=== PATIENT | male | born 1980 | race African-American/Black ===

== ENCOUNTER 2020-11-18 21:57 | Emergency (ER) | payer SELFPAY | END 2020-11-18 22:31 | disposition left against medical advice (07) | LOC: ER 22:30 | DX: Z53.21 Procedure and treatment not carried out due to patient leaving prior to being seen by health care provider (principal) ==

== ENCOUNTER 2020-12-29 22:05 | Emergency (ER) | payer MEDICAID ==
[~2020-12-29] VITALS: Ht 175.3 cm; Wt 78.0 kg
[2020-12-30] MEDS ORDERED: IBUPROFEN 600MG TABLET PO STA (01:04)
[2020-12-30] MEDS ORDERED: NAPR-681 PO (03:17)
[2020-12-30 03:48] VITALS: BP 133/68
== END 2020-12-30 03:49 | disposition home or self-care (01) ==
LOC: ER 22:05
DX: S80.11XA Contusion of right lower leg, initial encounter (principal); M25.561 Pain in right knee; E11.9 Type 2 diabetes mellitus without complications; V04.90XA Pedestrian on foot injured in collision with heavy transport vehicle or bus, unspecified whether traffic or nontraffic accident, initial encounter; Y93.89 Activity, other specified; Y92.410 Unspecified street and highway as the place of occurrence of the external cause
CPT/HCPCS: 73562; 73590; 99284

== ENCOUNTER 2023-03-06 12:41 | Emergency (ER) | payer MEDICAID ==
[~2023-03-06] VITALS: Ht 175.3 cm; Wt 80.0 kg
[~2023-03-06 12:41] MED LIST: ACET-2708 MT; NAPR-681 PO
[2023-03-06 12:57] VITALS: BP 116/76; PULSE 99; RESP 16; TEMP 98.5; O2SAT 100
== END 2023-03-06 14:48 | disposition home or self-care (01) ==
LOC: ER 12:41
DX: F91.9 Conduct disorder, unspecified (principal)
CPT/HCPCS: 99281

== ENCOUNTER 2023-03-06 15:31 | Emergency (ER) | payer MEDICAID ==
[2023-03-06 15:46] VITALS: PULSE 78; RESP 18
== END 2023-03-06 17:24 | disposition left against medical advice (07) ==
LOC: ER 15:31
DX: T14.8XXA Other injury of unspecified body region, initial encounter (principal); Z53.21 Procedure and treatment not carried out due to patient leaving prior to being seen by health care provider; W57.XXXA Bitten or stung by nonvenomous insect and other nonvenomous arthropods, initial encounter; Y93.89 Activity, other specified; Y92.89 Other specified places as the place of occurrence of the external cause; Y99.8 Other external cause status
CPT/HCPCS: 99281

== ENCOUNTER 2023-05-04 11:25 | Emergency (ER) | payer MEDICAID ==
[~2023-05-04] VITALS: Ht 177.8 cm; Wt 88.0 kg
[2023-05-04 11:29] VITALS: TEMP 98.2; O2SAT 99
[2023-05-04] MEDS ORDERED: PERM60CR4 TP (12:12)
[2023-05-04] MEDS ORDERED: KETOROLAC 15MG/ML VIAL IM ONE (12:15)
[2023-05-04 12:48] VITALS: BP 134/74; PULSE 82; RESP 16
== END 2023-05-04 13:00 | disposition home or self-care (01) ==
LOC: ER 11:25
DX: B88.9 Infestation, unspecified (principal); F15.10 Other stimulant abuse, uncomplicated
CPT/HCPCS: 99283; 96372; J1885

== ENCOUNTER 2023-08-02 16:16 | Emergency (ER) | payer MEDICAID ==
[~2023-08-02] VITALS: Ht 177.8 cm; Wt 86.2 kg
[~2023-08-02 16:16] MED LIST changes: +PERM60CR4 TP
[2023-08-02 16:22] VITALS: BP 149/92; PULSE 110; RESP 16; O2SAT 98
[2023-08-02 18:49] VITALS: TEMP 98.3
[2023-08-02] MEDS: ACETAMINOPHEN 325MG TABLET PO ONE (18:49)
[2023-08-02] MEDS ORDERED: IBUP-1525 MT (20:02)
[2023-08-02] MEDS ORDERED: TOPUD MT (20:02)
== END 2023-08-02 20:47 | disposition home or self-care (01) ==
LOC: ER 16:16
DX: S49.91XA Unspecified injury of right shoulder and upper arm, initial encounter (principal); E11.9 Type 2 diabetes mellitus without complications; Z79.899 Other long term (current) drug therapy; X58.XXXA Exposure to other specified factors, initial encounter; Y93.89 Activity, other specified; Y92.89 Other specified places as the place of occurrence of the external cause; Y99.8 Other external cause status
CPT/HCPCS: 71046; 73030; 73560; 99284

== ENCOUNTER 2023-11-19 21:56 | Emergency (ER) | payer MEDICAID ==
[~2023-11-19] VITALS: Ht 175.3 cm; Wt 84.0 kg
[~2023-11-19 21:56] MED LIST changes: +IBUP-1525 MT; +TOPUD MT
[2023-11-19 22:01] VITALS: O2SAT 99
[2023-11-19 22:23] VITALS: BP 117/71; PULSE 80; RESP 20; TEMP 98.4; O2SAT 100
[2023-11-20] MEDS ORDERED: IBUP-2030 MT (00:45)
[2023-11-20] MEDS ORDERED: DOXY100C74 MT (00:45)
[2023-11-20] MEDS: LIDOCAINE HCL 1% 20ML VIAL INFIL ONE (01:34)
== END 2023-11-20 01:35 | disposition home or self-care (01) ==
LOC: ER 21:56
DX: L02.414 Cutaneous abscess of left upper limb (principal); L03.114 Cellulitis of left upper limb; Z79.899 Other long term (current) drug therapy
CPT/HCPCS: 10060; 99283; J3490; Z7610 ×4